=== PATIENT | male | born 1980 | race Caucasian/White ===

== ENCOUNTER 2022-09-06 08:37 | Outpatient (CLI) | payer BC ==
[~2022-09-06 08:37] MED LIST: Iopamidol 370 76% 100 ML VIAL ONE
== END 2022-09-06 08:38 | disposition home or self-care (01) ==
LOC: CT 08:37
PROVIDERS: ATTEND Otolaryngology Plastic Surgery within the Head & Neck
DX: E21.3 Hyperparathyroidism, unspecified (principal); E04.2 Nontoxic multinodular goiter
CPT/HCPCS: 70492; 82310; 83970